=== PATIENT | male | born 1980 ===

== ENCOUNTER 2019-03-05 18:37 | Emergency (ER) | payer SELFPAY ==
[~2019-03-05] VITALS: Ht 157.5 cm; Wt 81.7 kg
[~2019-03-05 18:37] MED LIST: IBUP600 PO; KETO15TC TOP; Metformin HCl500 MG PO
[2019-03-05] MEDS ORDERED: Bactrim Ds Tab1 EACH PO (21:26)
== END 2019-03-05 21:40 | disposition home or self-care (01) ==
LOC: ER 18:37
DX: L03.213 Periorbital cellulitis (principal); L25.5 Unspecified contact dermatitis due to plants, except food; E11.9 Type 2 diabetes mellitus without complications
CPT/HCPCS: 70480; 96372; 99284-25; J3301

== ENCOUNTER 2019-03-08 17:18 | Emergency (ER) | payer SELFPAY ==
[~2019-03-08] VITALS: Ht 160 cm; Wt 81.7 kg
[~2019-03-08 17:18] MED LIST changes: +Bactrim Ds Tab1 EACH PO
== END 2019-03-08 18:04 | disposition home or self-care (01) ==
LOC: ER 17:18
DX: H57.89 Other specified disorders of eye and adnexa (principal); Z79.899 Other long term (current) drug therapy; E11.9 Type 2 diabetes mellitus without complications
CPT/HCPCS: 99282